=== PATIENT | female | born 1945 | race Caucasian/White ===

== ENCOUNTER 2020-04-16 11:58 | Emergency (ER) | payer MEDICARE, BC ==
[2020-04-16] MEDS ORDERED: EPIPEN 2-P0.3 MG/0.3 INJ (14:21)
[2020-04-16] MEDS ORDERED: PEPCID40 MG PO (14:21)
[2020-04-16] MEDS ORDERED: ZADITOR5 ML OS (14:21)
[2020-04-16] MEDS ORDERED: PREDNISONE 20 M20 MG PO (14:21)
== END 2020-04-16 14:29 | disposition home or self-care (01) ==
LOC: ER1 11:58
DX: H10.12 Acute atopic conjunctivitis, left eye (principal); T44.5X5A Adverse effect of predominantly beta-adrenoreceptor agonists, initial encounter; K21.9 Gastro-esophageal reflux disease without esophagitis; I10 Essential (primary) hypertension; Z88.5 Allergy status to narcotic agent
CPT/HCPCS: 96365; 96375; 99283; J2930

== ENCOUNTER → 2020-05-21 | Outpatient (CLI) | payer MEDICARE, BC ==
[~2020-05-21] MED LIST: EPIPEN 2-P0.3 MG/0.3 INJ; PEPCID40 MG PO; PREDNISONE 20 M20 MG PO; ZADITOR5 ML OS
== END ==
LOC: KOH-I 16:37
DX: R10.824 Left lower quadrant rebound abdominal tenderness (principal); K56.41 Fecal impaction
CPT/HCPCS: 74018

== ENCOUNTER → 2020-06-27 | Outpatient (CLI) | payer MEDICARE, BC | LOC: KOH-I 16:20 | DX: M50.30 Other cervical disc degeneration, unspecified cervical region (principal) | CPT/HCPCS: 72040 ==

== ENCOUNTER → 2020-12-26 | Outpatient (CLI) | payer MEDICARE, BC | LOC: KOH-I 13:49 | DX: R05.9 Cough, unspecified (principal); R91.8 Other nonspecific abnormal finding of lung field | CPT/HCPCS: 71046 ==

== ENCOUNTER → 2021-01-09 | Outpatient (CLI) | payer MEDICARE, BC | LOC: KOH-I 08:30 | DX: R91.8 Other nonspecific abnormal finding of lung field (principal) | CPT/HCPCS: 71250 ==

== ENCOUNTER → 2021-07-25 | Outpatient (CLI) | payer MEDICARE, BC | LOC: KOH-I 08:50 | DX: R91.1 Solitary pulmonary nodule (principal) | CPT/HCPCS: 71250 ==